=== PATIENT | female | born 1935 | race Caucasian/White ===

== ENCOUNTER 2016-09-14 17:01 | Emergency (ER) | payer MEDICARE ==
[2016-09-14 17:21] VITALS: BP 142/78
--- NOTE | 2016-09-14 18:01 | UC ---
Laceration HPI - HPI Summary HPI Summary: WAS STANDING ON HER COUCH HANGING CURTAINS ABOUT AN HOUR [employer] WHEN SHE SLIPPED AND FELL, STRIKING THE RIGHT SIDE OF HER FACE ON A TABLE. HAS A THROUGH AND THROUGH LACERATION TO THE RIGHT UPPER LIP AND BRUISING AND TENDERNESS TO RIGHT SAIDE OF FACE. NO LOC. DENIES ANY VINSON, DIZZINESS, NAUSEA OR VISUAL DISTURBANCE. UTD TETANUS. TEETH ARE NOT SORE. IS GOING TO SEE HER DENTIST TOMORROW JUST TO MAKE SURE EVERYTHING IS INTACT. - History Of Current Complaint Chief Complaint: UCLaceration Stated Complaint: MOUTH & FACE INJURY Time Seen by Provider: 09/14/16 17:52 Hx Obtained From: Patient Laceration Location: Face Mechanism Of Injury: Blunt Trauma Severity: Mild Pain Intensity: 3 Pain Scale Used: 0-10 Numeric - Allergies/Home Medications Allergies/Adverse Reactions: Allergies Allergy/AdvReac Type Severity Reaction Status Date / Time No Known Allergies Allergy Verified 12/08/13 18:13 PMH/Surg Hx/FS Hx/Imm Hx - Additional Past Medical History Additional PMH: ENVIRONMENTAL ALLERGIES Cardiovascular History Of: Reports: Hypertension Cancer History Of: Reports: Breast Cancer - Surgical History Surgical History: Yes Surgery Procedure, Year, and Place: bilateral knee replacements ('11 left, '08 right). mastectomy left '72. D&C '. Hysterectomy '90. cataracts '09 - Family History Known Family History: Positive: Hypertension, Diabetes - Social History Alcohol Use: None Substance Use Type: None Smoking Status (MU): Never Smoked Tobacco Review of Systems Skin: Other - LACERATION RIGHT UPPER LIP Respiratory: Negative Cardiovascular: Negative Gastrointestinal: Negative Musculoskeletal: Edema, Myalgia Neurological: Negative All Other Systems Reviewed And Are Negative: Yes Physical Exam Triage Information Reviewed: Yes Appearance: Well-Appearing, No Pain Distress, Well-Nourished Vital Signs: Initial Vital Signs Temp 98.1 F 09/14/16 17:14 Pulse 102 09/14/16 17:14 Resp 18 09/14/16 17:14 BP 142/78 09/14/16 17:14 Pulse Ox 96 09/14/16 17:14 Vital Signs Reviewed: Yes Eyes: Positive: Conjunctiva Clear ENT: Positive: Hearing grossly normal, Pharynx normal, TMs normal Dental: Positive: Other: - NO LOOSE TEETH Neck: Positive: Supple Respiratory Exam: Normal Cardiovascular Exam: Normal Abdomen Description: Positive: Soft Musculoskeletal: Positive: Edema @ - UPPER LIP AND RIGHT PERIORBITAL SOFT TISSUES, Other: - TTP RIGHT PERIORBITAL BONES Neurological: Positive: Alert Psychological: Positive: Age Appropriate Behavior Skin: Positive: Other - BRUISING RIGHT FACE. 8MM LACERATION RIGHT UPPER LIP - THROUGH AND THROUGH Laceration Repair - Laceration Repair 1 Description: Stellate Laceration Size After Repair: Length (cm) - 0.8CM, Width (mm) - 0MM, Depth (mm) - THROUGH AND THROUGH Modified For Repair: No Anesthesia Used: 1.0% Lido Irrigation With Pressure Irrigation Device: Yes Closure Material: Sutures - 2 SIMPLE INTERRUPTED Closure Method: Single Layer Suture Of: Skin Suture Type: Other - 6-0 SURGIPRO Diagnostics - Radiology CT MAXILLOFACIAL W/O CONTRAST Xray Interpretation: No Acute Changes Radiology Interpretation Completed By: Radiologist Laceration Course/Dx - Differential Dx - Laceration/Wound Provider Diagnoses: 1. LACERATION REPAIR RIGHT UPPER LIP. 2. RIGHT FACIAL CONTUSION Discharge - Discharge Plan Condition: Stable Disposition: HOME Patient Education Materials: Laceration (ED), Facial Contusion (ED) Referrals: Louann De La Paz MD [Primary Care Provider] - If Needed Additional Instructions: APPLY THIN LAYER ANTIBIOTIC OINTMENT UNDER BANDAGE FOR FIRST 2-3 DAYS ONLY. CHANGE BANDAGE DAILY AND NEEDED IF IT BECOMES SOILED OR WET. SEEK FOLLOW-UP IF YOU DEVELOP SPREADING REDNESS OF THE SKIN, PURULENT DRAINAGE, FEVER, INCREASED PAIN OR ANY OTHER CONCERNING SYMPTOMS. RETURN FOR SUTURE REMOVAL IN 7-10 DAYS OTC MEDS NEEDED FOR DISCOMFORT.
--- NOTE | 2016-09-14 18:54 | RAD ---
indication: Right labral periorbital pain after a fall from couch COMPARISON: CT of the sinuses dated April 06, [address] scan of the maxillofacial bones was performed without intravenous contrast enhancement. Contiguous axial sections were obtained from the level of the hyoid bone to just above the frontal sinuses. Findings: Bones: There is no displaced fracture or dislocation. The orbital rim is intact. Bilaterally the nasal bones are intact. The zygomatic arch is intact. The pterygoid plates are intact. Orbits: The globes are round. The optic nerves are symmetric. The extraocular musculature is normal. There is no post septal or intraconal inflammatory change. There is no retrobulbar hematoma. Paranasal Sinuses: The paranasal sinuses are clear. Visualized brain: The limited views of the brain do not demonstrate any acute abnormality or extra-axial hemorrhage. IMPRESSION: Normal CT examination of the maxillofacial bones.
[2016-09-14] MEDS ORDERED: Lidocaine 1% MPF* 2 ML VIAL ONE (18:56)
== END 2016-09-14 19:25 | disposition home or self-care (01) ==
LOC: UCEAST 17:01
DX: S01.511A Laceration without foreign body of lip, initial encounter (principal); W01.190A Fall on same level from slipping, tripping and stumbling with subsequent striking against furniture, initial encounter; Y93.89 Activity, other specified; Y92.009 Unspecified place in unspecified non-institutional (private) residence as the place of occurrence of the external cause; Z96.653 Presence of artificial knee joint, bilateral; Z98.49 Cataract extraction status, unspecified eye
CPT/HCPCS: 12011; 70486; 99211; G0463